=== PATIENT | female | born 1950 | race Caucasian/White ===

== ENCOUNTER 2025-07-08 07:25 | Emergency (ER) | payer OTHER, MEDICARE ==
[~2025-07-08] VITALS: Ht 165.1 cm; Wt 79.5 kg
[2025-07-08] MEDS ORDERED: TRAMADOL HCL50 MG PO (07:41)
[2025-07-08] MEDS ORDERED: PRILOSEC10 M1 PO (07:41)
[2025-07-08] MEDS ORDERED: MELOXICAM7.5 MG PO (07:41)
[2025-07-08 08:34] VITALS: BP 137/80
--- OUTSIDE RECORDS SUMMARY | 2025-07-08 09:09 | XMS ---
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 [place] VISIT COUNT (12 MO.) 1 OCTAVIO Gordon M.C.-[facility] TOTAL 2 NOTE: Visits indicate total known visits. ED/UCC VISIT TRACKING (12 MO.) 07/08/2025 07:27 [facility] [place] TYPE: Emergency COMPLAINT: - LT HIP INJURY 06/22/2025 08:16 [facility] TYPE: Emergency COMPLAINT: - post op hip pain and swelling left DIAGNOSES: - Other acute postprocedural pain - post op hip pain and swelling left - Post-op Problem INPATIENT VISIT TRACKING (12 MO.) No inpatient visits to display in this time frame [email or web address]
== END 2025-07-08 08:40 | disposition home or self-care (01) ==
LOC: ED 07:25
DX: S70.12XA Contusion of left thigh, initial encounter (principal); W01.0XXA Fall on same level from slipping, tripping and stumbling without subsequent striking against object, initial encounter; Z88.0 Allergy status to penicillin; Z79.899 Other long term (current) drug therapy; Z96.642 Presence of left artificial hip joint
CPT/HCPCS: 73502; 99283